=== PATIENT | male | born 1955 | race Caucasian/White ===

== ENCOUNTER 2020-04-02 09:53 | Inpatient (IN) | payer OTHER ==
[2020-04-02] MEDS ORDERED: SODIUM CHLORIDE 0.9% 1000 ML INFUS.BAG IV ONE (10:38)
--- NOTE | 2020-04-02 10:38 | PDOC ---
History of Present Illness - General Chief Complaint: CVA/TIA Stated Complaint: R/O POSSIBLE STROKE Time Seen by Provider: 04/02/20 09:54 History Source: Patient, Primary Care Provider Exam Limitations: No Limitations - History of Present Illness Initial Comments: 04/02/20 10:23 64M with a PMH of HTN who presents to the ER per his PCP for R sided weakness. The patient states that he woke up 2 days ago around 0600 and felt in his normal state of health. Between 0600 and 0700, he was on the computer and noticed that he had some weakness in his R arm. He stood up and felt weakness in his R leg, like his "leg would give out". He also states that he felt numbness on the R side of his tongue and weakness around the R side of his lips. He denies LOC, CP, SOB, fever, chills, nausea, vomiting, abd pain, vision changes, palpitations. He denies taking any medications. Last seen his PCP, Dr. Zuniga, 2 years ago. PCP: Dr. Maldonado Past History - Medical History Allergies/Adverse Reactions: Allergies Allergy/AdvReac Type Severity Reaction Status Date / Time No Known Allergies Allergy Unverified 11/08/14 09:20 Home Medications: Ambulatory Orders Amlodipine Besylate 10 mg PO DAILY #30 tablet 04/04/20 Aspirin [Aspirin EC] 325 mg PO DAILY #30 tablet. 04/04/20 Atorvastatin Ca [Lipitor] 80 mg PO HS #30 tab 04/04/20 - Psycho-Social/Smoking History Smoking History: Never smoked Information on smoking cessation initiated: No Hx Alcohol Use: No Drug/Substance Use Hx: No Review of Systems - Review of Systems Able to Perform ROS?: Yes Comments:: 04/02/20 10:45 GENERAL/CONSTITUTIONAL: No fever or chills. No weakness. HEAD, EYES, EARS, NOSE AND THROAT: No change in vision. No ear pain or discharge. No sore throat. CARDIOVASCULAR: No chest pain, palpitations, or lightheadedness. RESPIRATORY: No cough, wheezing, shortness of breath, or hemoptysis. GASTROINTESTINAL: No abdominal pain, nausea, vomiting, diarrhea, or constipation. GENITOURINARY: No dysuria, frequency, hematuria, or change in urination. MUSCULOSKELETAL: No joint or muscle swelling or pain. No neck or back pain. SKIN: No rash or lesions. NEUROLOGIC: + for R sided weakness and R tongue numbness. No headache, tingling, loss of consciousness, or change in strength/sensation. Is the patient limited Armenian proficient: No *Physical Exam - Vital Signs Last Vital Signs Temp Pulse Resp BP Pulse Ox 98.5 F 113 H 16 223/119 H 97 04/02/20 09:54 04/02/20 09:54 04/02/20 09:54 04/02/20 09:54 04/02/20 09:54 - Physical Exam 04/02/20 10:45 GENERAL: Well developed, well nourished. Awake and alert. No acute distress. HEENT: Normocephalic, atraumatic. Hearing grossly normal. Moist mucous membranes. PERRLA, EOMI. No conjunctival pallor. Sclera are non-icteric. NECK: Supple. Full ROM. No JVD. CARDIOVASCULAR: Regular rate and rhythm. No murmurs, rubs, or gallops. PULMONARY: No evidence of respiratory distress. Mild, diffuse expiratory wheezing. ABDOMINAL: Soft. Non-tender. Non-distended. No rebound or guarding. GENITOURINARY: No CVA tenderness bilaterally. MUSCULOSKELETAL: Normal range of motion at all joints. No bony deformities or tenderness. EXTREMITIES: No cyanosis. No clubbing. No edema. No calf tenderness or swelling. SKIN: Warm and dry. Normal capillary refill. No rashes. No jaundice. NEUROLOGICAL: Alert, awake, appropriate. Cranial nerves 2-12 intact. No deficits to light touch and temperature in face, upper extremities and lower extremities. 5/5 strength in deltoids, biceps, triceps, quadriceps, hamstrings, and gastrocnemius. Normal speech. Gait is normal without ataxia. PSYCHIATRIC: Cooperative. Good eye contact. Appropriate mood and affect. NIH Stroke Scale - Last Known Well Date/Time & Onset Date Last Known Well: 03/31/20 Time Last Known Well: 06:00 - Initial Evaluation Level of consciousness: Alert Ask patient the month and their age: Answers both correctly Ask patient to open & close eyes; make fist and let go: Obeys both correctly Best gaze (horizontal eye movement): Normal Visual field testing: No visual field loss Facial paresis (Show teeth/raise eyebrows/close eyes tight): Normal symmetrical movement Motor Function: Left Arm: Normal Motor Function: Right Arm: Drift Motor Function: Left Leg: Normal (extends leg 30 degrees for 5 seconds without drift) Motor Function: Right Leg: Drift Limb Ataxia: No ataxia Sensory(Use pinprick test arms,legs,trunk,face/side to side): Normal Best language (Describe picture, name items, read sentences): No Aphasia Dysarthria (read several words): Normal articulation Extinction and Inattention: No abnormality - Total Score NIH Stroke Scale Score: 2 tPA Exclusion checklist 3-4.5h - Time Elapsed Date last known well: 03/31/20 Time last known well: 06:00 Elaspsed time: 7 Day(s) and 12 Hour(s) and 48 Minutes - Thrombolytic Therapy Candidate Is patient eligible for thrombolytic therapy: No - Ineligibility reason(s) Reasons No tPA given: Outside of window - delayed arrival Heart Score/ECG Review #1 General ECG Interpretation: Sinus Rhythm, Normal Rate, Normal Intervals, No acute ischemic changes Compared to previous ECG there are: Previous ECG unavail 04/02/20 10:47 Sinus tach, vent rate 105 LA 138 QRS 76 QTc 427 No STD or DALILA Borderline LVH No priors Critical Care Time/MDM Note - Medical Decision Making Note: 04/02/20 10:48 64M with a PMH of HTN who presents with a 2 day old CVA. Stroke protocol in place. CTH negative. Pt noted to be borderline tachycardic 100's with elevated BP. ASA given. Will d/w neurology as labs come back. Pt well appearing otherwise. Will admit for CVA workup. 04/02/20 13:[address] Horton for admission./ Case d/w Dr. Tripp who agrees w/ plan and BP control. Discharge - Discharge Information Problems reviewed: Yes Clinical Impression/Diagnosis: Cerebrovascular accident (CVA) Qualifiers: CVA mechanism: unspecified Qualified Code(s): I63.9 - Cerebral infarction, unspecified Condition: Stable Disposition: HOME - Follow up/Referral - Patient Discharge Instructions - Post Discharge Activity
[2020-04-02] MEDS ORDERED: ASPIRIN 81 MG CHEWABLE TABLETS PO ONE (10:40)
[2020-04-02] MEDS ORDERED: ASPIRIN 81 MG CHEWABLE TABLETS ONE (10:48)
--- NOTE | 2020-04-02 10:54 | PDOC ---
Documentation entered by Celia Crespo SCRIBE, acting as scribe for Franko Carey MD. Franko Carey MD: This documentation has been prepared by the Zak lawrence Brenda, SCRIBE, under my direction and personally reviewed by me in its entirety. I confirm that the documentation accurately reflects all work, treatment, procedures, and medical decision making performed by me. Attending Attestation - Resident Resident Name: JefferyEusebio - ED Attending Attestation I have performed the following: I have examined & evaluated the patient, The case was reviewed & discussed with the resident, I agree w/resident's findings & plan, Exceptions are as noted - HPI HPI: 04/02/20 10:19 The patient is a 64 year old male, with a significant PMH of HTN (not on any medications) who presents to the emergency department sent by PCP Dr. Maldonado for evaluation of right-sided weakness. As per patient, he woke up Thursday (03/31/2020) morning and felt fine. Patient states he was able to stand up and go on his computer fine. He then notes that around 6:00am he began to difficulty operating with his right hand. He then reports that he got up to get some water, at which time he noticed weakness in his right lower extremity. Patient reports that he called [facility], where he was advised to go to an ED, but he did not due to insurance issues -also states that he was formally well controlled on blood pressure medicines but has been off his medications for 2 years The patient denies chest pain, shortness of breath, headache and dizziness. Denies fever, chills, nausea, vomiting, diarrhea and constipation. Denies dysuria, frequency, urgency and hematuria. Denies any other complaints/symptoms. Allergies: NKA Social history: No reported hx of tobacco use, alcohol use or illicit drug use. PCP: Joel - Physicial Exam PE: 04/02/20 10:38 GENERAL: The patient is awake, alert, and fully oriented, Nontoxic - in no acute distress. HEAD: Normocephalic, atraumatic. EYES: extraocular movements intact, sclera anicteric, conjunctiva clear. ENT: Normal voice, Moist mucous membranes. NECK: Normal range of motion, supple LUNGS: Breath sounds equal, clear to auscultation bilaterally. No wheezes, no rhonchi, no rales. HEART: tachycardic, normal S1 and S2 without murmur, rub or gallop. ABDOMEN: Soft, nontender, No guarding, no rebound. No CVA tenderness EXTREMITIES: Normal range of motion, no edema. NEUROLOGICAL: mild R arm/lg weakness, sensation intact, nomal finger to nose, normal rapid altenating movements, no significant facial weakness, mild flattening of nasolabial fold PSYCH: Normal mood, normal affect. SKIN: Warm, Dry, normal turgor, - Medical Decision Making 04/02/20 10:39 64-year-old gentleman history of hypertension presenting with right-sided weakness, onset approximately 48 hours ago, outside of TPA and interventional window. Code dykes was initiated from triage Patient's vital signs noted for tachycardia and hypertension 04/02/20 10:[address] head is negative Patient was given aspirin Will control the patient's blood pressure Give fluids for his tachycardia Anticipate admission, neuro consultation Heart Score/ECG Review - ECG Impressions Comment:: 04/02/20 10:54 Twelve-lead EKG was performed and reviewed by me. There is normal sinus rhythm with a rate of 102 The axis is normal. The intervals are normal. There is normal R wave progression There are no ST or T wave abnormalities. Impression: Sinus tachycardia Discharge - Discharge Information Problems reviewed: Yes Clinical Impression/Diagnosis: Cerebrovascular accident (CVA) Qualifiers: CVA mechanism: unspecified Qualified Code(s): I63.9 - Cerebral infarction, unspecified Condition: Stable Disposition: HOME - Follow up/Referral - Patient Discharge Instructions - Post Discharge Activity
[2020-04-02 10:57] LABS: INR 0.97 (0.83-1.09); PROTHROMBIN TIME (PATIENT) 11.5 SEC (9.7-13.0)
[2020-04-02 11:00] LABS: ACTIVATED PTT 30.5 SECONDS (25.2-36.5)
--- NOTE | 2020-04-02 11:14 | EKG ---
Test Reason : Blood Pressure : / mmHG Vent. Rate : 102 BPM Atrial Rate : 102 BPM P-R Int : 138 ms QRS Dur : 076 ms QT Int : 328 ms P-R-T Axes : 066 054 052 degrees QTc Int : 427 ms SINUS TACHYCARDIA POSSIBLE LEFT ATRIAL ENLARGEMENT BORDERLINE ECG NO PREVIOUS ECGS AVAILABLE Confirmed by Brandon Tomlinson ([id number]) on 04/02/2020 11:14:20 AM Referred By: Confirmed By:Brandon Tomlinson
[2020-04-02 11:25] LABS: BASO % 0.7 % (0-2.0); EOS % 1.6 % (0-4.5); HEMATOCRIT 48.3 % (35.4-49); HEMOGLOBIN 16.3 GM/dL (11.7-16.9); LYMPH % 23.9 % (8-40); MCH 31.7 pg (25.7-33.7); MCHC 33.8 g/dl (32.0-35.9); MEAN CELL VOLUME 93.9 fl (80-96); MEAN PLT VOLUME 9.1 fl (7.5-11.1); MONO % 8.2 % (3.8-10.2); NEUT % 65.6 % (42.8-82.8); PLATELET COUNT 207 K/MM3 (134-434); RBC 5.14 M/mm3 (4.00-5.60); RDW 13.2 % (11.9-15.9); WHITE BLOOD COUNT 7.8 K/mm3 (4.0-10.0)
[2020-04-02 11:48] LABS: ALK PHOS 161 U/L (45-117); BILIRUBIN,TOTAL 1.1 mg/dL (0.2-1); CHLORIDE 106 mmol/L (98-107); CO2 25 mmol/L (21-32); CREATININE 1.2 mg/dL (0.55-1.3); POTASSIUM 3.8 mmol/L (3.5-5.1); SGOT/AST 19 U/L (15-37); SGPT/ALT 20 U/L (13-61); TOT PROT 7.3 g/dl (6.4-8.2)
[2020-04-02 11:49] LABS: ALBUMIN 4.2 g/dl (3.4-5.0); ANION GAP 8 MMOL/L (8-16); BLOOD UREA NITROGEN 8.2 mg/dL (7-18); CALCIUM 9.2 mg/dL (8.5-10.1); GLUCOSE,RANDOM 74 mg/dL (74-106); SODIUM 139 mmol/L (136-145)
[2020-04-02 12:30] LABS: CHOLESTEROL 220 mg/dL (50-200); HDL CHOLESTEROL 59 mg/dL (40-60); LDL CHOLESTEROL (ONLY SJRH) 143 mg/dL (5-100); TRIGLYCERIDES 135 mg/dL (0-150)
[2020-04-02] MEDS ORDERED: LABETALOL HCL 5 MG/1 ML (100MG/20 ML VIAL) IVPUSH ONE (13:09)
[2020-04-02] MEDS ORDERED: ATORVASTATIN CA 80 MG TABLET (FP) PO ONE (13:10)
[2020-04-02] MEDS ORDERED: ATORVASTATIN CA 80 MG TABLET (FP) ONE (13:35)
[2020-04-02] MEDS ORDERED: LABETALOL HCL 5 MG/1 ML (200MG/40ML VIAL) IVPB ONE (13:36)
[2020-04-02] MEDS ORDERED: amLODIPine BESYLATE 10 MG TABLET (FP) PO ONE (14:13)
--- NOTE | 2020-04-02 15:58 | HP ---
CHIEF COMPLAINT: R sided weakness PCP: denies HISTORY OF PRESENT ILLNESS: 64 M h/o HTN (not on meds for the past 2 years), presents with R sided weakness and slightly slurred speech since Thursday 7AM. Patient endorses at home started feeling paresthesias on R side then started feeling weakness and heavioness of RUE and RLE. Denied sx in the past. Denies CP/SOB/LOC/palpitations. Has not taken meds for BP in few years, in ED BP on presentation 220s systolic was given Labetalol now improved to 170s systolic. Dr. Tripp was consulted who recommended APT and BP management. ER course was notable for: (1) CT head with old chronic infarct (2) BP >180/110, improved w/ Labetalol push 10mg (3) Bridged to Norvasc 10mg PO for BP control Recent Travel: denies PAST MEDICAL HISTORY: as above PAST SURGICAL HISTORY: denies Social History: active smoker Smoking: admits to smoking <1 ppd for years Alcohol: denies Drugs: denies Allergies No Known Allergies Allergy (Unverified 11/08/14 09:20) HOME MEDICATIONS: Denies taking any meds for the past 2 years PHYSICAL EXAMINATION Vital Signs - 24 hr 04/02/20 04/02/20 04/02/20 09:54 11:07 13:44 Temperature 98.5 F Pulse Rate 113 H Pulse Rate [ 115 H 83 Apical] Respiratory 16 16 Rate Blood Pressure 223/119 H Blood Pressure 198/104 H 191/95 H [Right Arm] O2 Sat by Pulse 97 99 Oximetry (%) 04/02/20 15:30 Temperature Pulse Rate Pulse Rate [ 83 Apical] Respiratory 14 Rate Blood Pressure Blood Pressure 165/87 [Right Arm] O2 Sat by Pulse 98 Oximetry (%) GENERAL: Awake, alert, and fully oriented, in no acute distress. HEENT NC/AT, EOMI, dry MM, slight drooping/flattening of R nasolabial fold, trace slur of speech, neck supple, no audible carotid bruits LUNGS: Breath sounds equal, clear to auscultation bilaterally. No wheezes, and no crackles. No accessory muscle use. HEART: S1, S2+, RRR, no m/r/g appreciated ABDOMEN: Soft, nontender, not distended, normoactive bowel sounds, no guarding, no rebound, no masses. No hepatomegaly or splenomegaly. MUSCULOSKELETAL: Normal range of motion at all joints. No bony deformities or tenderness. No CVA tenderness. UPPER EXTREMITIES: 2+ pulses, warm, well-perfused. No cyanosis. No clubbing. No peripheral edema. LOWER EXTREMITIES: 2+ pulses, warm, well-perfused. No calf tenderness. No peripheral edema. NEUROLOGICAL: 4/5 strength R arm, sustains abduction of RUE for 10 seconds with trace drift, slightly decreased sensation RUE as compared to LUE, 5/5 strength RLE with slightly decreased sensation PSYCHIATRIC: Cooperative. Good eye contact. Appropriate mood and affect. SKIN: Warm, dry, normal turgor, no rashes or lesions noted, normal capillary refill. Laboratory Results - last 24 hr 04/02/20 04/02/20 04/02/20 10:11 10:16 10:16 WBC RBC Hgb Hct MCV MCH MCHC RDW Plt Count MPV Absolute Neuts (auto) Neutrophils % Lymphocytes % Monocytes % Eosinophils % Basophils % Nucleated RBC % PT with INR 11.50 INR 0.97 PTT (Actin FS) 30.5 Sodium 139 Potassium 3.8 Chloride 106 Carbon Dioxide 25 Anion Gap 8 BUN 8.2 Creatinine 1.2 Est GFR (CKD-EPI)AfAm 74.66 Est GFR (CKD-EPI)NonAf 64.42 POC Glucometer 82 Random Glucose 74 Calcium 9.2 Total Bilirubin 1.1 H AST 19 ALT 20 Alkaline Phosphatase 161 H Creatine Kinase 166 Creatine Kinase Index 0.7 CK-MB (CK-2) 1.3 Troponin I < 0.02 Total Protein 7.3 Albumin 4.2 Triglycerides 135 Cholesterol 220 H Total LDL Cholesterol 143 H HDL Cholesterol 59 Blood Type Antibody Screen 04/02/20 04/02/20 10:16 10:16 WBC 7.8 RBC 5.14 Hgb 16.3 Hct 48.3 MCV 93.9 MCH 31.7 MCHC 33.8 RDW 13.2 Plt Count 207 MPV 9.1 Absolute Neuts (auto) 5.2 Neutrophils % 65.6 Lymphocytes % 23.9 Monocytes % 8.2 Eosinophils % 1.6 Basophils % 0.7 Nucleated RBC % 0 PT with INR INR PTT (Actin FS) Sodium Potassium Chloride Carbon Dioxide Anion Gap BUN Creatinine Est GFR (CKD-EPI)AfAm Est GFR (CKD-EPI)NonAf POC Glucometer Random Glucose Calcium Total Bilirubin AST ALT Alkaline Phosphatase Creatine Kinase Creatine Kinase Index CK-MB (CK-2) Troponin I Total Protein Albumin Triglycerides Cholesterol Total LDL Cholesterol HDL Cholesterol Blood Type O POSITIVE Antibody Screen Negative ASSESSMENT/PLAN: 64 M R hemiparesis Uncontrolled HTN 2/2 HTN emergency v.s. true CVA HLD Active smoker Plan: ASA/high intensity statin given, obtain Echo./Carotids/MRI of brain A1c, lipids, TSH, utox Serial neurochecks, re-scan immediately if status deteriorates Lower BP by 25% systolic, bridge with Norvasc for BP control (out of window for permissive HTN) Neurology evaluation DVT ppx: Heparin SC Tele unit Visit type - Emergency Visit Emergency Visit: Yes ED Registration Date: 04/02/20 Care time: The patient presented to the Emergency Department on the above date and was hospitalized for further evaluation of their emergent condition. - New Patient This patient is new to me today: Yes Date on this admission: 04/02/20 - Critical Care Critical Care patient: No
[2020-04-02 17:31] VITALS: BMI 24.0
[2020-04-02] MEDS ORDERED: FLU VACCINE QUAD 60 MCG/0.5 ML (MDV 19-20) IM ONE (17:31)
[2020-04-02] MEDS: HEPARIN NA (PORCINE) 5,000 UNITS/ML 1ML VIAL SQ SCH (21:24)
[2020-04-03 05:16] LABS: PH,URINE 5.5 (5.0-8.0); URINE APPEARANCE CLEAR; URINE BILIRUBIN NEGATIVE (NEGATIVE); URINE COLOR YELLOW; URINE GLUCOSE (UA) NEGATIVE (NEGATIVE); URINE KETONE 1+ (NEGATIVE); URINE LEUK ESTERASE NEGATIVE (NEGATIVE); URINE NITRITE NEGATIVE (NEGATIVE); URINE PROTEIN NEGATIVE (NEGATIVE)
[2020-04-03] MEDS: HEPARIN NA (PORCINE) 5,000 UNITS/ML 1ML VIAL SQ SCH ×3 (05:20→22:50)
[2020-04-03 05:25] LABS: COCAINE, UR NEGATIVE ng/ml (CUTOFF=300); PHENCYCLIDINE,URINE NEGATIVE ng/ml (CUTOFF=25); URINE BENZODIAZEPINES NEGATIVE ng/ml (CUTOFF=200)
[2020-04-03 06:20] LABS: METHADONE, UR NEGATIVE ng/ml (CUTOFF=300); OPIATES, URI NEGATIVE ng/ml (CUTOFF=300); URINE AMPHETAMINES NEGATIVE ng/ml (CUTOFF=500); URINE BARBITURATES NEGATIVE ng/ml (CUTOFF=200)
[2020-04-03 09:37] LABS: HEMATOCRIT 45.3 % (35.4-49); HEMOGLOBIN 15.3 GM/dL (11.7-16.9); MCH 31.6 pg (25.7-33.7); MCHC 33.7 g/dl (32.0-35.9); MEAN CELL VOLUME 93.9 fl (80-96); MEAN PLT VOLUME 8.5 fl (7.5-11.1); PLATELET COUNT 180 K/MM3 (134-434); RBC 4.83 M/mm3 (4.00-5.60); RDW 13.1 % (11.9-15.9); WHITE BLOOD COUNT 7.3 K/mm3 (4.0-10.0)
--- NOTE | 2020-04-03 09:49 | PN ---
Teaching Attending Note Name of Resident: Cassandra Doshi ATTENDING PHYSICIAN STATEMENT I saw and evaluated the patient. I reviewed the resident's note and discussed the case with the resident. I agree with the resident's findings and plan as documented. SUBJECTIVE: Patient is feeling better, no headache or chest pain, no nausea or vomiting or dizziness. OBJECTIVE: Vital Signs Temperature 97.8 F 04/03/20 05:00 Pulse Rate 75 04/03/20 05:00 Respiratory Rate 20 04/03/20 05:00 Blood Pressure 148/77 04/03/20 05:00 O2 Sat by Pulse Oximetry (%) 98 04/02/20 21:00 PE: per resident's note power of right arm 4/5, having difficulty with his right side fingers. CBCD WBC 7.3 K/mm3 (4.0-10.0) 04/03/20 09:08 RBC 4.83 M/mm3 (4.00-5.60) 04/03/20 09:08 Hgb 15.3 GM/dL (11.7-16.9) 04/03/20 09:08 Hct 45.3 % (35.4-49) 04/03/20 09:08 MCV 93.9 fl (80-96) 04/03/20 09:08 MCHC 33.7 g/dl (32.0-35.9) 04/03/20 09:08 RDW 13.1 % (11.9-15.9) 04/03/20 09:08 Plt Count 180 K/MM3 (134-434) 04/03/20 09:08 MPV 8.5 fl (7.5-11.1) 04/03/20 09:08 CMP Sodium 139 mmol/L (136-145) 04/02/20 10:16 Potassium 3.8 mmol/L (3.5-5.1) 04/02/20 10:16 Chloride 106 mmol/L (98-107) 04/02/20 10:16 Carbon Dioxide 25 mmol/L (21-32) 04/02/20 10:16 Anion Gap 8 MMOL/L (8-16) 04/02/20 10:16 BUN 8.2 mg/dL (7-18) 04/02/20 10:16 Creatinine 1.2 mg/dL (0.55-1.3) 04/02/20 10:16 Random Glucose 74 mg/dL (74-106) 04/02/20 10:16 Calcium 9.2 mg/dL (8.5-10.1) 04/02/20 10:16 Total Bilirubin 1.1 mg/dL (0.2-1) H 04/02/20 10:16 AST 19 U/L (15-37) 04/02/20 10:16 ALT 20 U/L (13-61) 04/02/20 10:16 Alkaline Phosphatase 161 U/L (45-117) H 04/02/20 10:16 Total Protein 7.3 g/dl (6.4-8.2) 04/02/20 10:16 Albumin 4.2 g/dl (3.4-5.0) 04/02/20 10:16 CARDIAC ENZYMES Creatine Kinase 166 U/L (26-308) 04/02/20 10:16 Troponin I < 0.02 ng/ml (0.00-0.05) 04/02/20 10:16 Current Medications Generic Name Dose Route Start Last Admin Trade Name Freq PRN Reason Stop Dose Admin Amlodipine Besylate 10 mg 04/03/20 10:00 Norvasc - PO DAILY [facility] Aspirin 81 mg 04/03/20 10:00 Ecotrin - PO DAILY [facility] Atorvastatin Calcium 80 mg 04/03/20 22:00 Lipitor - PO HS [facility] Heparin Sodium (Porcine) 5,000 unit 04/02/20 22:00 04/03/20 05:20 Heparin - SQ 5,000 unit TID [facility] Administration Influenza Virus Vaccine Quadrival 60 mcg 04/03/20 10:00 Fluarix Quad [id number] Syringe IM 04/03/20 10:[address] of the head: mild volume loss and periventricular chronic microvascular ischemic disease changes. possible small focal chronic infarct in the right periventricular white matter. No gross CT evidence of an acute infarct. MRI of the brain: acute infarct is noted within the left basal ganglia/frontal trent radiata, mild periventricular and subcortical chronic microvascular ischemic changes. BL carotid doppler US: intimal thickening and minimal plaque build up at the right common carotid bifurcation as well as intimal thickening and small to moderate size plaques at the left carotid bifurcation and bulb without evidence of hemdynamic stenosis ASSESSMENT AND PLAN: This patient is a 64yom with Pmhx of HTN (not on meds for the past 2 years), presents with R sided weakness and with mild slurry speech which improved and was found to have elevated Blood pressure. # Acute Infarct on MRI within the left basal ganglia/frontal trent radiata. # Acute right hemiparesis: on statin, aspirin continue, neuro consult. Echo: normal # Hypertension Emergency: better controlled now on norvasc 10mg continue # Smoking: Cessation adviced DVT ppx: Heparin SC Tele unit continue to monitor
[2020-04-03] MEDS ORDERED: FLU VACC QS2019-20(6MOS UP)/PF 60 MCG/0.5 ML SYRINGE IM ONE (10:00)
[2020-04-03 10:04] LABS: ALBUMIN 3.9 g/dl (3.4-5.0); BILIRUBIN,TOTAL 1.4 mg/dL (0.2-1); BLOOD UREA NITROGEN 12.7 mg/dL (7-18); CALCIUM 8.8 mg/dL (8.5-10.1); CREATININE 1.1 mg/dL (0.55-1.3); TOT PROT 6.7 g/dl (6.4-8.2)
--- NOTE | 2020-04-03 10:13 | PN ---
Physical Exam: SUBJECTIVE: Patient seen and examined at the bedside, there were no acute events overnight. Pt has no complaints, notes that he still has R sided weakness. OBJECTIVE: Vital Signs Period Temp Pulse Resp BP Sys/[facility] Pulse Ox Last 24 Hr 97.8 F-98.1 F 75-115 14-20 123-198/68-104 98-99 GENERAL: The patient is awake, alert, and fully oriented, in no acute distress. Pt with visible right sided facial droop and slight slurring of speech. HEAD: Normal with no signs of trauma. EYES: PERRL, extraocular movements intact, LUNGS: Breath sounds equal, clear to auscultation bilaterally, no wheezes, no crackles, no accessory muscle use. HEART: Regular rate and rhythm, S1, S2 without murmur, rub or gallop. ABDOMEN: Soft, nontender, nondistended, normoactive bowel sounds EXTREMITIES: 2+ pulses, warm, well-perfused, no edema. NEUROLOGICAL: 4/5 strength R arm and R LE, normal sensation to light touch intact bilaterally. PSYCH: Normal mood, normal affect. SKIN: Warm, dry, normal turgor, no rashes or lesions noted Laboratory Results - last 24 hr 04/02/20 04/02/20 04/02/20 10:11 10:16 10:16 WBC RBC Hgb Hct MCV MCH MCHC RDW Plt Count MPV Absolute Neuts (auto) Neutrophils % Lymphocytes % Monocytes % Eosinophils % Basophils % Nucleated RBC % PT with INR 11.50 INR 0.97 PTT (Actin FS) 30.5 Sodium 139 Potassium 3.8 Chloride 106 Carbon Dioxide 25 Anion Gap 8 BUN 8.2 Creatinine 1.2 Est GFR (CKD-EPI)AfAm 74.66 Est GFR (CKD-EPI)NonAf 64.42 POC Glucometer 82 Random Glucose 74 Hemoglobin A1c % Calcium 9.2 Total Bilirubin 1.1 H AST 19 ALT 20 Alkaline Phosphatase 161 H Creatine Kinase 166 Creatine Kinase Index 0.7 CK-MB (CK-2) 1.3 Troponin I < 0.02 Total Protein 7.3 Albumin 4.2 Triglycerides 135 Cholesterol 220 H Total LDL Cholesterol 143 H HDL Cholesterol 59 TSH 1.36 Urine Color Urine Appearance Urine pH Ur Specific Barnard Urine Protein Urine Glucose (UA) Urine Ketones Urine Blood Urine Nitrite Urine Bilirubin Urine Urobilinogen Ur Leukocyte Esterase Opiates Screen Methadone Screen Barbiturate Screen Phencyclidine Screen Ur Amphetamines Screen MDMA (Ecstasy) Screen Benzodiazepines Screen Cocaine Screen U Marijuana (THC) Screen COVID-19 (PARKER) Blood Type Antibody Screen 04/02/20 04/02/20 04/02/20 10:16 10:16 10:16 WBC 7.8 RBC 5.14 Hgb 16.3 Hct 48.3 MCV 93.9 MCH 31.7 MCHC 33.8 RDW 13.2 Plt Count 207 MPV 9.1 Absolute Neuts (auto) 5.2 Neutrophils % 65.6 Lymphocytes % 23.9 Monocytes % 8.2 Eosinophils % 1.6 Basophils % 0.7 Nucleated RBC % 0 PT with INR INR PTT (Actin FS) Sodium Potassium Chloride Carbon Dioxide Anion Gap BUN Creatinine Est GFR (CKD-EPI)AfAm Est GFR (CKD-EPI)NonAf POC Glucometer Random Glucose Hemoglobin A1c % Calcium Total Bilirubin AST ALT Alkaline Phosphatase Creatine Kinase Creatine Kinase Index CK-MB (CK-2) Troponin I Total Protein Albumin Triglycerides Cholesterol Total LDL Cholesterol HDL Cholesterol TSH Urine Color Urine Appearance Urine pH Ur Specific Barnard Urine Protein Urine Glucose (UA) Urine Ketones Urine Blood Urine Nitrite Urine Bilirubin Urine Urobilinogen Ur Leukocyte Esterase Opiates Screen Methadone Screen Barbiturate Screen Phencyclidine Screen Ur Amphetamines Screen MDMA (Ecstasy) Screen Benzodiazepines Screen Cocaine Screen U Marijuana (THC) Screen COVID-19 (PARKER) Not detected Blood Type O POSITIVE Antibody Screen Negative 04/02/20 04/03/20 04/03/20 13:00 04:45 04:45 WBC RBC Hgb Hct MCV MCH MCHC RDW Plt Count MPV Absolute Neuts (auto) Neutrophils % Lymphocytes % Monocytes % Eosinophils % Basophils % Nucleated RBC % PT with INR INR PTT (Actin FS) Sodium Potassium Chloride Carbon Dioxide Anion Gap BUN Creatinine Est GFR (CKD-EPI)AfAm Est GFR (CKD-EPI)NonAf POC Glucometer Random Glucose Hemoglobin A1c % 5.6 Calcium Total Bilirubin AST ALT Alkaline Phosphatase Creatine Kinase Creatine Kinase Index CK-MB (CK-2) Troponin I Total Protein Albumin Triglycerides Cholesterol Total LDL Cholesterol HDL Cholesterol TSH Urine Color Yellow Urine Appearance Clear Urine pH 5.5 Ur Specific Barnard 1.022 Urine Protein Negative Urine Glucose (UA) Negative Urine Ketones 1+ H Urine Blood Negative Urine Nitrite Negative Urine Bilirubin Negative Urine Urobilinogen 1.0 Ur Leukocyte Esterase Negative Opiates Screen Negative Methadone Screen Negative Barbiturate Screen Negative Phencyclidine Screen Negative Ur Amphetamines Screen Negative MDMA (Ecstasy) Screen Negative Benzodiazepines Screen Negative Cocaine Screen Negative U Marijuana (THC) Screen Negative COVID-19 (PARKER) Blood Type Antibody Screen 04/03/20 04/03/20 09:08 09:08 WBC 7.3 RBC 4.83 Hgb 15.3 Hct 45.3 MCV 93.9 MCH 31.6 MCHC 33.7 RDW 13.1 Plt Count 180 MPV 8.5 Absolute Neuts (auto) Neutrophils % Lymphocytes % Monocytes % Eosinophils % Basophils % Nucleated RBC % PT with INR INR PTT (Actin FS) Sodium 140 Potassium 4.0 Chloride 106 Carbon Dioxide 27 Anion Gap 8 BUN 12.7 Creatinine 1.1 Est GFR (CKD-EPI)AfAm 82.95 Est GFR (CKD-EPI)NonAf 71.57 POC Glucometer Random Glucose 93 Hemoglobin A1c % Calcium 8.8 Total Bilirubin 1.4 H AST 17 ALT 20 Alkaline Phosphatase 145 H Creatine Kinase Creatine Kinase Index CK-MB (CK-2) Troponin I Total Protein 6.7 Albumin 3.9 Triglycerides Cholesterol Total LDL Cholesterol HDL Cholesterol TSH Urine Color Urine Appearance Urine pH Ur Specific Barnard Urine Protein Urine Glucose (UA) Urine Ketones Urine Blood Urine Nitrite Urine Bilirubin Urine Urobilinogen Ur Leukocyte Esterase Opiates Screen Methadone Screen Barbiturate Screen Phencyclidine Screen Ur Amphetamines Screen MDMA (Ecstasy) Screen Benzodiazepines Screen Cocaine Screen U Marijuana (THC) Screen COVID-19 (PARKER) Blood Type Antibody Screen Active Medications Generic Name Dose Route Start Last Admin Trade Name Freq PRN Reason Stop Dose Admin Amlodipine Besylate 10 mg 04/03/20 10:00 Norvasc - PO DAILY [facility] Aspirin 81 mg 04/03/20 10:00 Ecotrin - PO DAILY ANTONY Atorvastatin Calcium 80 mg 04/03/20 22:00 Lipitor - PO HS ANTONY Heparin Sodium (Porcine) 5,000 unit 04/02/20 22:00 04/03/20 05:20 Heparin - SQ 5,000 unit TID ANTONY Administration Imaging: >> CT of the head: mild volume loss and periventricular chronic microvascular ischemic disease changes. possible small focal chronic infarct in the right periventricular white matter. No gross CT evidence of an acute infarct. >> MRI of the brain: acute infarct is noted within the left basal ganglia/frontal trent radiata, mild periventricular and subcortical chronic microvascular ischemic changes. >> BL carotid doppler US: intimal thickening and minimal plaque build up at the right common carotid bifurcation as well as intimal thickening and small to moderate size plaques at the left carotid bifurcation and bulb without evidence of hemdynamic stenosis ASSESSMENT/PLAN: 64M with a PMH of HTN who presents with a 2 day old CVA Acute L Basal Ganglia. frontal trent radiata- pt with motor deficits on the R side, no apparent sensory deficits - ASA/ 324 mg given once, now 81mg dialy - continue atorvostatin 80mg HS - f/u Echo - A1c, lipids, TSH, utox >> all WNL/ negative - Serial neurochecks, re-scan immediately if status deteriorates - continue norvasc 10mg daily and monitor BPs, 148/77 this morning. - Neurology following, appreciate recommendations FEN: - PO fluids - replete lytes PRN - Na/ Fat/ cholesterol controlled diet PPx DVT ppx: Heparin SC Dispo: Tele unit Visit type - Emergency Visit Emergency Visit: Yes ED Registration Date: 04/02/20 Care time: The patient presented to the Emergency Department on the above date and was hospitalized for further evaluation of their emergent condition. - New Patient This patient is new to me today: No - Critical Care Critical Care patient: No - Discharge Referral Referred to [facility].C[facility] No ATTENDING PHYSICIAN STATEMENT I saw and evaluated the patient. I reviewed the resident's note and discussed the case with the resident. I agree with the resident's findings and plan as documented. SUBJECTIVE: OBJECTIVE: ASSESSMENT AND PLAN:
[2020-04-03] MEDS: amLODIPine BESYLATE 10 MG TABLET (FP) PO SCH (10:54)
[2020-04-03] MEDS: ASPIRIN COATED 81 MG TABLET.EC PO SCH (10:54)
--- NOTE | 2020-04-03 12:07 | ECHO ---
Name: SHAN MEYERZaheer Exam:Adult Echocardiogram Study Date: 04/03/2020 09:37 AM Age: 64 yrs Reason For Study: CVA Height: 67 in Weight: 155 lb BSA: 1.8 m2 MMode/2D Measurements & Calculations IVSd: 0.97 cm Ao root diam: 2.4 cm LVIDd: 4.9 cm LA dimension: 3.4 cm LVIDs: 3.8 cm ACS: 1.5 cm LVPWd: 1.0 cm EDV(Teich): 114.2 ml LVOT diam: 2.0 cm ESV(Teich): 63.4 ml LVLd ap4: 7.1 cm SV(MOD-sp4): 58.0 ml EDV(MOD-sp4): 96.0 ml LVLs ap4: 6.0 cm ESV(MOD-sp4): 38.0 ml LAV (MOD-bp): 47.0 ml TAPSE: 1.9 cm RV S Cristobal: 10.1 cm/sec Doppler Measurements & Calculations MV E max cristobal: 63.1 cm/sec Ao V2 max: 141.2 cm/sec MV A max cristobal: 109.1 cm/sec Ao max P.0 mmHg MV E/A: 0.58 Ao V2 mean: 90.2 cm/sec MV dec time: 0.20 sec Ao mean P.8 mmHg Ao V2 VTI: 27.0 cm JACOBO(I,D): 2.3 cm2 JACOBO(V,D): 2.0 cm2 LV V1 max P.3 mmHg SV(LVOT): 61.3 ml LV V1 mean P.7 mmHg LV V1 max: 91.0 cm/sec LV V1 mean: 62.2 cm/sec LV V1 VTI: 20.2 cm PA V2 max: 89.6 cm/sec Med Peak E' Cristobal: 5.9 cm/sec PA max P.2 mmHg Med E/e': 10.6 PA acc slope: 460.2 cm/sec2 Lat Peak E' Cristobal: 9.3 cm/sec PA acc time: 0.19 sec Lat E/e': 6.8 PA pr(Accel): -5.0 mmHg Pulm Sys Cristobal: 67.5 cm/sec Pulm Kaiser Cristobal: 46.6 cm/sec Pulm S/D: 1.4 Procedure A complete two-dimensional transthoracic echocardiogram was performed (2D, M-mode, Doppler and color flow Doppler). Left Ventricle The left ventricular size, thickness and function are normal. Ejection Fraction = 60%. Grade I diasto lic dysfunction, (abnormal relaxation pattern). Right Ventricle The right ventricle is normal in size and function. Atria Normal left and right atrial size and function. Mitral Valve The mitral valve is normal in structure and function. There is no mitral valve stenosis. There is tra ce mitral regurgitation. Tricuspid Valve The tricuspid valve is normal in structure and function. There was insufficient TR detected to calcul ate RV systolic pressure. Aortic Valve There is mild aortic sclerosis.;. No hemodynamically significant valvular aortic stenosis. Pulmonic Valve The pulmonic valve is not well visualized. Great Vessels The aortic root is normal size. Pericardium/Pleura There is no pericardial effusion. Interpretation Summary The left ventricular size, thickness and function are normal The right ventricle is normal in size and function. No hemodynamically significant valvular aortic stenosis. Evans Gaytan 04/03/2020 12:07 PM
--- NOTE | 2020-04-03 18:33 | CONSULT ---
Consult - text type - Consultation Consultation Note: NEUROLOGY CONSULTATION is greatly appreciated: This 64 yo RH single man lives alone. 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 H/O HTN, previously followed by Dr. Zuniga and controlled with meds. However no f/u or meds x 2 years. "Few months" of tremors involving the RIGHT hand affecting his handwriting. Yesterday awoke in his USOH until he noted right hand numbness and weakness working at his computer and right leg weakness when attempting to ambulate. Came to the ED later in the afternoon as weakness persisted. In ED: CT of head (reviewed): Mild atrophy and microvascular disease. MRI of brain (reviewed): Acute left Basal ganglia lacunar infarct and diffuse, scattered subcortical and periventricular microvascular changes. Carotid duplex doppler: Diffuse calcific plaque at the carotid bulbs (L>R) without significant hemodynamic changes Chol:229 BP= 223/119 !!! QAMAR: Right carotid bruit. Cor reg. NEURO: MS: normal speech: Min. dysarthric CN: Full vaughn. Sl stare (masked facies). Min lower right facial droop.. Decreased tongue ASHANTI's. gag OK. Motor: Right drift. Right grasp=4/5. Mild right hemiparesis with increased reflexes. B/L Babinski's Rest tremor and cogwheel rigidity on LEFT (None on the right). Coord: Slow but no dystaxia Sensory: Normal Gait: Mild right circumduction. Slight shuffle. Decreased right arm swing. IMP: 1. Left Basal Ganglia hypertensive lacunar infarct with mild right hemiparesis 2. Diffuse hypertensive FIRE[employer] CUTTER microvascular disease 3. Underlying Parkinson's disease (PD). Curiously, athe left BG lacune has eradicated the right sided extrapyramidal tremor (lesion surgery). SUGGEST: Control BP with AFFORDABLE meds. Cardiology consult. ASA 325 mg daily and a generic statin. office services coordinator (emergency) to file for Medicaid. Neuro and Internal medicine follow ups as out patient. Thank you very much, Kapil Tripp MD
[2020-04-03] MEDS ORDERED: ATORVASTATIN CA 80 MG TABLET (FP) PO SCH (22:00)
[2020-04-04 07:07] LABS: HEMATOCRIT 47.7 % (35.4-49); HEMOGLOBIN 15.9 GM/dL (11.7-16.9); MCH 31.3 pg (25.7-33.7); MCHC 33.4 g/dl (32.0-35.9); MEAN CELL VOLUME 93.8 fl (80-96); MEAN PLT VOLUME 8.8 fl (7.5-11.1); PLATELET COUNT 195 K/MM3 (134-434); RBC 5.08 M/mm3 (4.00-5.60); RDW 13.5 % (11.9-15.9); WHITE BLOOD COUNT 9.1 K/mm3 (4.0-10.0)
[2020-04-04] MEDS: HEPARIN NA (PORCINE) 5,000 UNITS/ML 1ML VIAL SQ SCH ×2 (07:10→14:05)
[2020-04-04 07:40] LABS: BLOOD UREA NITROGEN 16.6 mg/dL (7-18); CALCIUM 9.1 mg/dL (8.5-10.1); CREATININE 1.2 mg/dL (0.55-1.3); POTASSIUM 5.2 mmol/L (3.5-5.1)
[2020-04-04 09:05] VITALS: PULSE 100; TEMP 98
[2020-04-04] MEDS: ASPIRIN COATED 81 MG TABLET.EC PO SCH (09:33)
[2020-04-04] MEDS: amLODIPine BESYLATE 10 MG TABLET (FP) PO SCH (09:33)
--- NOTE | 2020-04-04 13:46 | PN ---
Teaching Attending Note Name of Resident: Cassandra Doshi ATTENDING PHYSICIAN STATEMENT I saw and evaluated the patient. I reviewed the resident's note and discussed the case with the resident. I agree with the resident's findings and plan as documented. SUBJECTIVE: Patient has no change but feels better with no acute distress. OBJECTIVE: Vital Signs Temperature 98 F 04/04/20 09:04 Pulse Rate 100 H 04/04/20 09:04 Respiratory Rate 18 04/04/20 09:04 Blood Pressure 145/78 04/04/20 09:04 O2 Sat by Pulse Oximetry (%) 98 04/04/20 09:00 PE: per resident's note CBCD WBC 9.1 K/mm3 (4.0-10.0) 04/04/20 06:00 RBC 5.08 M/mm3 (4.00-5.60) 04/04/20 06:00 Hgb 15.9 GM/dL (11.7-16.9) 04/04/20 06:00 Hct 47.7 % (35.4-49) 04/04/20 06:00 MCV 93.8 fl (80-96) 04/04/20 06:00 MCHC 33.4 g/dl (32.0-35.9) 04/04/20 06:00 RDW 13.5 % (11.9-15.9) 04/04/20 06:00 Plt Count 195 K/MM3 (134-434) 04/04/20 06:00 MPV 8.8 fl (7.5-11.1) 04/04/20 06:00 CMP Sodium 142 mmol/L (136-145) 04/04/20 06:00 Potassium 5.2 mmol/L (3.5-5.1) H 04/04/20 06:00 Chloride 107 mmol/L (98-107) 04/04/20 06:00 Carbon Dioxide 28 mmol/L (21-32) 04/04/20 06:00 Anion Gap 7 MMOL/L (8-16) L 04/04/20 06:00 BUN 16.6 mg/dL (7-18) 04/04/20 06:00 Creatinine 1.2 mg/dL (0.55-1.3) 04/04/20 06:00 Random Glucose 109 mg/dL (74-106) H 04/04/20 06:00 Calcium 9.1 mg/dL (8.5-10.1) 04/04/20 06:00 Total Bilirubin 1.4 mg/dL (0.2-1) H 04/03/20 09:08 AST 17 U/L (15-37) 04/03/20 09:08 ALT 20 U/L (13-61) 04/03/20 09:08 Alkaline Phosphatase 145 U/L (45-117) H 04/03/20 09:08 Total Protein 6.7 g/dl (6.4-8.2) 04/03/20 09:08 Albumin 3.9 g/dl (3.4-5.0) 04/03/20 09:08 CARDIAC ENZYMES Creatine Kinase 166 U/L (26-308) 04/02/20 10:16 Troponin I < 0.02 ng/ml (0.00-0.05) 04/02/20 10:16 Current Medications Generic Name Dose Route Start Last Admin Trade Name Abdulazizq PRN Reason Stop Dose Admin Amlodipine Besylate 10 mg 04/03/20 10:00 04/04/20 09:33 Norvasc - PO 10 mg DAILY ANTONY Administration Aspirin 81 mg 04/03/20 10:00 04/04/20 09:33 Ecotrin - PO 81 mg DAILY ANTONY Administration Atorvastatin Calcium 80 mg 04/03/20 22:00 04/03/20 22:49 Lipitor - PO 80 mg HS ANTONY Administration Heparin Sodium (Porcine) 5,000 unit 04/02/20 22:00 04/04/20 07:10 Heparin - SQ 5,000 unit TID ANTONY Administration Home Medications Medication Instructions Recorded Amlodipine Besylate 10 mg PO DAILY #30 tablet 04/04/20 Aspirin [Aspirin EC] 325 mg PO DAILY #30 tablet. 04/04/20 Atorvastatin Ca [Lipitor] 80 mg PO HS #30 tab 04/04/20 Laboratory Tests 04/02/20 04/02/20 10:16 10:16 Cholesterol 220 H Total LDL Cholesterol 143 H TSH 1.36 COVID-19 (PARKER) Not detected CT of the head: mild volume loss and periventricular chronic microvascular ischemic disease changes. possible small focal chronic infarct in the right periventricular white matter. No gross CT evidence of an acute infarct. MRI of the brain: acute infarct is noted within the left basal ganglia/frontal trent radiata, mild periventricular and subcortical chronic microvascular ischemic changes. BL carotid doppler US: intimal thickening and minimal plaque build up at the right common carotid bifurcation as well as intimal thickening and small to moderate size plaques at the left carotid bifurcation and bulb without evidence of hemdynamic stenosis ASSESSMENT AND PLAN: This patient is a 64yom with Pmhx of HTN (not on meds for the past 2 years), presents with R sided weakness and with mild slurry speech which improved and was found to have elevated Blood pressure. # Acute Infarct on MRI within the left basal ganglia/frontal trent radiata. As per neuro to dc the patient with Ecotrin 325mg daily, tight control of blood pressure. # Acute right hemiparesis: on statin, aspirin 325mg continue, neuro consult. Echo: normal # Hypertension Emergency: better controlled now on norvasc 10mg continue # Smoking: Cessation adviced DVT ppx: Heparin SC dc patient home
[2020-04-04 14:10] VITALS: BP 150/78
--- NOTE | 2020-04-04 14:19 | DS ---
Physical Exam: SUBJECTIVE: Patient seen and examined at the bedside today. Found patient up and out of bed, walking around room without difficulty. Pt still with some R sided motor weakness in the RUE, RLE and lower quadrant of R side of face, however seems slightly improved from yesterday and is very mild. Overall pt has no complaints, and states he has been working on exercises to help with his fine motor skills in his R hand. OBJECTIVE: Vital Signs Period Temp Pulse Resp BP Sys/[facility] Pulse Ox Last 24 Hr 98 F-98.4 F 77-100 18-20 117-155/56-88 98 PHYSICAL EXAM GENERAL: The patient is awake, alert, and fully oriented, in no acute distress. Pt with visible right sided facial droop and slight slurring of speech. HEAD: Normal with no signs of trauma. EYES: PERRL, extraocular movements intact, LUNGS: Breath sounds equal, clear to auscultation bilaterally, no wheezes, no crackles, no accessory muscle use. HEART: Regular rate and rhythm, S1, S2 without murmur, rub or gallop. ABDOMEN: Soft, nontender, nondistended, normoactive bowel sounds EXTREMITIES: 2+ pulses, warm, well-perfused, no edema. NEUROLOGICAL: 4/5 strength R arm and R LE, normal sensation to light touch intact bilaterally. PSYCH: Normal mood, normal affect. SKIN: Warm, dry, normal turgor, no rashes or lesions noted LABS Laboratory Results - last 24 hr 04/04/20 04/04/20 06:00 06:00 WBC 9.1 RBC 5.08 Hgb 15.9 Hct 47.7 MCV 93.8 MCH 31.3 MCHC 33.4 RDW 13.5 Plt Count 195 MPV 8.8 Sodium 142 Potassium 5.2 H Chloride 107 Carbon Dioxide 28 Anion Gap 7 L BUN 16.6 Creatinine 1.2 Est GFR (CKD-EPI)AfAm 74.14 Est GFR (CKD-EPI)NonAf 63.97 Random Glucose 109 H Calcium 9.1 Imaging: >> CT of the head: mild volume loss and periventricular chronic microvascular ischemic disease changes. possible small focal chronic infarct in the right periventricular white matter. No gross CT evidence of an acute infarct. >> MRI of the brain: acute infarct is noted within the left basal ganglia/frontal trent radiata, mild periventricular and subcortical chronic microvascular ischemic changes. >> BL carotid doppler US: intimal thickening and minimal plaque build up at the right common carotid bifurcation as well as intimal thickening and small to moderate size plaques at the left carotid bifurcation and bulb without evidence of hemdynamic stenosis HOSPITAL COURSE: Date of Admission:04/02/20 64M with a PMH of HTN who presents with HTN (BP 223/119 on admission) and R sided weakness. On MRI he was found to have an acute L basal ganglia and frontal trent radiata ischemic infact with R sided motor deficits. Sensation was intact bilaterally. Pt seen an evaluated by Neuro who recommended BP contol with norvasc 10mg daily and ASA 325mg daily. Pt also found to have hyperlipedemia and started on atorvostatin 80HS. Pt was seen by PT and was able to walk independently without assist. Pt was discharged home in stable condition with plans to follow up outpatient with the neurologist, in addition to his PCP. Pt did not have any medical insurance so PT said they would work with the patient on a payment plan so that he could attend some rehab sessions, however overall the patient's deficits were very mild and the patient was able to function independently. Date of Discharge: 04/04/20 Minutes to complete discharge: 40 Discharge Summary Problems reviewed: Yes Reason For Visit: CVA Condition: Stable - Instructions Diet, Activity, Other Instructions: You were in the hospital because you had sudden right sided weakness. In the hospital we did an MRI of your brain which showed that you had an acute stroke. We observed you on a telemetry floor to monitor your heart and look for arrythmias but did not find any. We also did an echocardiogram of your heart which was unremarkable and an ultrasound of the arteries in your neck which did not show any blockages. On your blood work we found that your cholesterol was too high so we are starting you on a medication called Atorvostatin to treat it. We also noted that your blood pressure was too high and we are starting you on a medication called Amlodipine to treat it. Because you had the stroke you will also need to start taking aspirin every day. Please START taking the following medicaitons: - Amlodipine 10mg ONCE per day - Atorvostatin 80mg ONCE AT NIGHT - Aspirin 325 mg ONCE per day, for your convenience I am including a prescription for aspirin but you can purchase it over the counter at the pharmacy Please follow up with your primary care doctor within 1 week of discharge from the hospital. I am including a referral to Dr. Cabello, this is the [facility] resident clinic, where you can follow up. Please follow up with the neurologist, Dr. Tripp, after your discharge as well. Please return to the emergency department immediately if you have any symptoms of chest pains, shortness of breath, weakness, numbness, tingling, change in vision, or difficulty speaking please return to the hospital immediately. Referrals: Vikash Cabello MD [Staff Physician] - 1 Week Kapil Tripp MD [Staff Physician] - 1 Week Andi Zuniga MD [Primary Care Provider] - 1 Week Disposition: HOME - Home Medications Comprehensive Discharge Medication List: Ambulatory Orders Amlodipine Besylate 10 mg PO DAILY #30 tablet 04/04/20 Aspirin [Aspirin EC] 325 mg PO DAILY #30 tablet. 04/04/20 Atorvastatin Ca [Lipitor] 80 mg PO HS #30 tab 04/04/20 This patient is new to me today: No Emergency Visit: Yes ED Registration Date: 04/02/20 Care time: The patient presented to the Emergency Department on the above date and was hospitalized for further evaluation of their emergent condition. Critical Care patient: No - Discharge Referral Referred to [facility] No ATTENDING PHYSICIAN STATEMENT I saw and evaluated the patient. I reviewed the resident's note and discussed the case with the resident. I agree with the resident's findings and plan as documented. SUBJECTIVE: OBJECTIVE: ASSESSMENT AND PLAN:
[2020-04-04] MEDS ORDERED: PT OWN MED DRAWER 7, Y5N ONE (14:48)
== END 2020-04-04 15:00 | disposition home or self-care (01) | DRG 45 ==
LOC: JER 09:53 → JERBED 13:51 → J4W 16:15
PROVIDERS: ATTEND Internal Medicine
DX: I63.9 Cerebral infarction, unspecified (principal); I16.1 Hypertensive emergency; G20 Parkinson's disease; E78.5 Hyperlipidemia, unspecified; G81.91 Hemiplegia, unspecified affecting right dominant side; R47.81 Slurred speech; R29.702 NIHSS score 2
CPT/HCPCS: 36415; 70450-TC; 70551-TC; 80048; 80053; 80061; 80307; 81003; 82550; 82553; 82962; 83036; 83721; 84443; 84484; 85025; 85027; 85610; 85730; 86850; 86900; 86901; 90686; 93005; 93010; 93306-TC; 93880-TC; 97116-GP; 97161-GP; 99285-25; G0008; J1644; U0003

== ENCOUNTER 2025-02-24 07:14 | Day surgery (SDC) | payer OTHER ==
[2025-02-24] MEDS ORDERED: BUPIVACAINE HCL/PF 0.25% (2.5MG/ML) 10 ML VIAL ONE (11:45)
[2025-02-24] MEDS ORDERED: MIDAZOLAM HCL 2 MG/2 ML SINGLE DOSE VIAL ONE (12:14)
[2025-02-24] MEDS ORDERED: ROCURONIUM BROMIDE 50 MG/5 ML SYRINGE ONE ×2 (12:14→14:18)
[2025-02-24] MEDS ORDERED: PROPOFOL 20 ML ONE (12:14)
[2025-02-24] MEDS ORDERED: ceFAZolin SODIUM 1 GM VIAL ONE (12:30)
[2025-02-24] MEDS: ceFAZolin SODIUM 1 GM VIAL IVPB ONE (12:32)
[2025-02-24] MEDS: BUPIVACAINE HCL/PF 0.25% (2.5MG/ML) 10 ML VIAL IJ ONE (12:42)
[2025-02-24] MEDS ORDERED: ONDANSETRON 4 MG/2 ML VIAL ONE (15:21)
[2025-02-24] MEDS ORDERED: SUGAMMADEX SODIUM 200 MG/2 ML VIAL ONE (15:22)
[2025-02-24] MEDS ORDERED: oxyCODONE HCL 5 MG TABLET PO PRN (15:35)
[2025-02-24] MEDS ORDERED: ONDANSETRON 4 MG/2 ML VIAL IVPUSH PRN (15:35)
[2025-02-24] MEDS ORDERED: LACTATED RINGERS SOLUTION 1,000 ML IV SCH (15:45)
[2025-02-24 17:31] VITALS: BP 117/58; PULSE 90; RESP 16; TEMP 97.5
== END 2025-02-24 18:21 | disposition home or self-care (01) ==
LOC: JASU-SURG 07:14
PROVIDERS: ATTEND Surgery
PROC: 8E0W4CZ Robotic Assisted Procedure of Trunk Region, Percutaneous Endoscopic Approach (ICD-10-PCS; 2025-02-24)
PROC: 0YU64JZ Supplement Left Inguinal Region with Synthetic Substitute, Percutaneous Endoscopic Approach (ICD-10-PCS; principal; 2025-02-24 11:30)
DX: K40.90 Unilateral inguinal hernia, without obstruction or gangrene, not specified as recurrent (principal)
CPT/HCPCS: 49650; S2900; 86850; 86900; 86901; 94760; C1781